=== PATIENT | male | born 1950 ===

== ENCOUNTER 2021-03-16 08:00 | Outpatient (CLI) | payer OTHER ==
[~2021-03-16 08:00] MED LIST: HUMALOG MIX 75/23 M1
== END 2021-03-16 08:09 | disposition home or self-care (01) ==
LOC: TOM 08:00
PROVIDERS: ATTEND Urology
DX: N20.0 Calculus of kidney (principal); N40.0 Benign prostatic hyperplasia without lower urinary tract symptoms; R31.0 Gross hematuria

== ENCOUNTER 2022-11-19 14:26 | Emergency (ER) | payer OTHER ==
[~2022-11-19] VITALS: Ht 170.2 cm; Wt 95.3 kg
[~2022-11-19 14:26] MED LIST changes: +CANDESARTAN-HC1 EAC1 PO; +FINASTERIDE5 MG PO; +METOPROLOL SUCC50 MG PO
== END 2022-11-19 17:22 | disposition home or self-care (01) ==
LOC: ER 14:26
DX: J40 Bronchitis, not specified as acute or chronic (principal); Z20.822 Contact with and (suspected) exposure to COVID-19; Z91.041 Radiographic dye allergy status; Z95.0 Presence of cardiac pacemaker; I10 Essential (primary) hypertension; E11.9 Type 2 diabetes mellitus without complications; Z79.4 Long term (current) use of insulin

== ENCOUNTER 2022-12-15 16:39 | Emergency (ER) | payer OTHER ==
[~2022-12-15] VITALS: Ht 170.2 cm; Wt 99.8 kg
[2022-12-15] MEDS ORDERED: HUMALOG MI100 UNIT/2 SQ (16:55)
[2022-12-15] MEDS ORDERED: ATACAND32 MG PO (16:55)
[2022-12-15] MEDS ORDERED: PLAVIX75 MG PO (16:56)
[2022-12-15] MEDS ORDERED: TOPROL XL50 MG PO (16:56)
== END 2022-12-15 23:54 | disposition home or self-care (01) ==
LOC: ER 16:39
PROVIDERS: General Practice
DX: R42 Dizziness and giddiness (principal); Z88.6 Allergy status to analgesic agent; E11.9 Type 2 diabetes mellitus without complications; Z79.84 Long term (current) use of oral hypoglycemic drugs; I10 Essential (primary) hypertension; Z86.73 Personal history of transient ischemic attack (TIA), and cerebral infarction without residual deficits; Z95.0 Presence of cardiac pacemaker